=== PATIENT | male | born 1980 ===

== ENCOUNTER 2016-08-05 17:18 | Emergency (ER) | payer OTHER, BC ==
[2016-08-05 17:23] VITALS: BP 152/90; PULSE 84; RESP 18; TEMP 97.7; O2SAT 99
[2016-08-05] MEDS ORDERED: TDAP Vaccine 0.5 mL Syr IM ONE (17:35)
--- NOTE | 2016-08-05 17:37 | ED PDOC ---
HPI: Back Time Seen by Provider: 08/05/16 17:20 Chief Complaint (Nursing): Back Pain Chief Complaint (Provider): Back Pain History Per: Patient, EMS History/Exam Limitations: no limitations Onset/Duration Of Symptoms: Mins Current Symptoms Are (Timing): Still Present Additional Complaint(s): Moises Callaway is a 36 year old male that was brought to the ED via EMS after falling approximately 5 feet off of the back of his truck and onto his back. Patient denies any head injury or LOC, and states that most of his pain is located on the left side of his hip and back, as well as left chest wall. He arrived to ED in C-collar. Past Medical History Reviewed: Historical Data, Nursing Documentation, Vital Signs Vital Signs: Last Vital Signs Temp 97.7 F 08/05/16 17:21 Pulse 84 08/05/16 17:21 Resp 18 08/05/16 17:21 BP 152/90 H 08/05/16 17:21 Pulse Ox 99 08/05/16 17:21 - Family History Family History: States: Unknown Family Hx - Home Medications Home Medications: Ambulatory Orders Medication Instructions Recorded Naproxen [Naprosyn Tab] 375 mg PO Q8 PRN #21 tab 08/05/16 Non-Formulary 1 ea XX DAILY #1 ea 08/05/16 oxyCODONE/Acetaminophen [Percocet 1 ea PO Q6 PRN #10 tab 08/05/16 5/325 mg Tab] - Allergies Allergies/Adverse Reactions: Allergies Allergy/AdvReac Type Severity Reaction Status Date / Time No Known Allergies Allergy Verified 08/05/16 17:20 Review of Systems Musculoskeletal: Positive for: Back Pain (lower-left sided back pain), Leg Pain (left hip pain). Negative for: Neck Pain Physical Exam - Reviewed Nursing Documentation Reviewed: Yes Vital Signs Reviewed: Yes - Physical Exam Appears: Positive for: Non-toxic, In Acute Distress (Patient in moderate painful distress) Head Exam: Positive for: ATRAUMATIC, NORMOCEPHALIC Skin: Positive for: Normal Color, Warm Eye Exam: Positive for: Normal appearance, EOMI, PERRL Neck: Positive for: Normal (nontender) Cardiovascular/Chest: Positive for: Regular Rate, Rhythm. Negative for: Chest Non Tender (Left-lateral chest tenderness), Murmur Respiratory: Positive for: Normal Breath Sounds. Negative for: Wheezing Gastrointestinal/Abdominal: Positive for: Soft. Negative for: Tenderness Extremity: Positive for: Tenderness (left hip tenderness), Other (Abrasion along left forearm. No leg shortening.) Neurologic/Psych: Positive for: Alert, Oriented - Laboratory Results Result Diagrams: 08/05/16 18:45 08/05/16 18:45 - ECG O2 Sat by Pulse Oximetry: 99 (RA) Pulse Ox Interpretation: Normal - Progress ED Course And Treament: HIP LEFT: NO ACUTE FX PATIENT GIVEN MORPHINE 4 MG IV X 1 DOSE FOR PAIN VOMITING NOTED IN CT ZOFRAN 4 MG IV X 1 DOSE; ATIVAN 0.5 MG IV X 1 DOSE FOR ANXIETY, NS 1 LITER 500 ML PER HOUR Medical Decision Making Medical Decision Making: Impression: Left Hip, Left Lower Back, and Left Lateral Chest Pain as a result of Trauma Plan: * Type and Screen * CBC * BMP * PTT * PT * CT C-Spine w/o contrast * CT Abd/Pelvis w/ IV contrast * X-Ray Left Hip * Morphine 4 mg IV * TDAP Vaccine * Reevaluation CT Chest with IV Contrast Findings: Artifacts: Motion artifact degrades image quality. Lungs and Pleural Space: Trachea and main bronchi are patent. There is no pneumothorax. There is minimal peripheral airspace disease in the left upper lobe. There is minimal linear scarring at the lung bases. There are no effusions. Mediastinum: There is no pneumomediastinum. The esophagus is unremarkable. CT C-Spine without IV Contrast Findings: Vertebrae: There is maintenance of the cervical lordosis. There is no prevertebral soft tissue swelling. There are no fractures. There are degenerative changes. There is narrowing of the predental space. There is disc space narrowing greatest c5/c6. There is endplate irregularity and subchondral cyst formation. There are degenerative osteophytes. Facet joints align anatomically. Spinous processes align in the expected fashion. Discs/Spinal canal/neural foramina: See above. Soft tissues: See above. Scribe Attestation: Documented by Yesenia Florez, acting as a scribe for Earl Leger PA-C. Provider Scribe Attestation: All medical record entries made by the Scribe were at my direction and personally dictated by me. I have reviewed the chart and agree that the record accurately reflects my personal performance of the history, physical exam, medical decision making, and the department course for this patient. I have also personally directed, reviewed, and agree with the discharge instructions and disposition. Disposition - Clinical Impression Clinical Impression: Rib fracture - Patient ED Disposition Is Patient to be Admitted: No - Disposition Referrals: [facility] [Outside] Disposition: Routine/Home Disposition Time: 19:43 Condition: FAIR Prescriptions: Naproxen [Naprosyn Tab] 375 mg PO Q8 PRN #21 tab PRN Reason: Pain, Moderate (4-7) Non-Formulary 1 ea XX DAILY #1 ea oxyCODONE/Acetaminophen [Percocet 5/325 mg Tab] 1 ea PO Q6 PRN #10 tab PRN Reason: Pain, Severe (8-10) Instructions: Rib Fracture (ED), Hip Contusion (ED) Forms: [facility] ED School/Work Excuse Print Language: LUX[place]
[2016-08-05] MEDS ORDERED: Sodium Chloride 0.9% 50 ML IV ONE (18:00)
[2016-08-05] MEDS ORDERED: Iohexol 300 50 ML ONE (18:00)
[2016-08-05] MEDS ORDERED: Sodium Chloride 0.9% 1,000 ML IV STA (18:45)
--- NOTE | 2016-08-05 19:06 | CT ---
EXAM: CT Cervical Spine Without Intravenous Contrast CLINICAL HISTORY: 36 years old, male; Injury or trauma; Injury Fell; Initial encounter; Blunt trauma; Additional info: Trauma; Distracting injury; R/O c spine injury TECHNIQUE: Axial computed tomography images of the cervical spine without intravenous contrast. This CT exam was performed using one or more of the following dose reduction techniques: automated exposure control, adjustment of the mA and/or kV according to patient size, and/or use of iterative reconstruction technique. Coronal and sagittal reformatted images were created and reviewed. EXAM DATE/TIME: 08/05/2016 5:33 PM COMPARISON: There are no prior studies for comparison. FINDINGS: Vertebrae: There is maintenance of the cervical lordosis. There is no prevertebral soft tissue swelling. There are no fractures. There degenerative changes. There is narrowing of the predental space. There is disc space narrowing greatest C5/C6. There is endplate irregularity and subchondral cyst formation. There degenerative osteophytes.Facet joints align anatomically.Spinous processes align in the expected fashion. Discs/spinal canal/neural foramina: See above. Soft tissues: See above. Thyroid: Thyroid is unremarkable Lung apices: Lung apices are clear. IMPRESSION: Degenerative change, no fracture
[2016-08-05 19:20] LABS: BASO # 0.1 K/uL (0.0-0.2); BASO % 0.6 % (0.0-2.0); EOS # 0.1 K/uL (0.0-0.7); EOS % 1.2 % (0.0-4.0); HEMATOCRIT 41.8 % (35.0-51.0); LYMPH # 2.3 K/uL (1.0-4.3); MEAN CELL VOLUME 85.1 fl (80.0-94.0); MEAN CORPUSCULAR HEMOGLOBIN 28.7 pg (27.0-31.0); MEAN CORPUSCULAR HGB CONC 33.7 g/dL (33.0-37.0); MEAN PLATELET VOLUME 8.5 fl (7.2-11.7); MONO # 0.7 K/uL (0.0-0.8); MONO % 6.4 % (0.0-10.0); NEUT # 7.6 K/uL (1.8-7.0); NEUT % 70.8 % (50.0-75.0); NRBC % 0.1 % (0.0-0.0); RED CELL DISTRIBUTION WIDTH 13.5 % (11.5-14.5); WHITE BLOOD COUNT 10.8 K/uL (4.8-10.8)
[2016-08-05 19:21] LABS: PARTIAL THROMBOPLASTIN TIME 26.3 SECONDS (23.3-32.5)
--- NOTE | 2016-08-05 19:23 | CT ---
EXAM: CT Chest With Intravenous Contrast CLINICAL HISTORY: 36 years old, male; Injury or trauma; Injury Fall; Initial encounter; Blunt; Abdominal wall; Blunt trauma (contusions or hematomas); Additional info: Trauma CT; Fell from height; Left chest/hip pain TECHNIQUE: Axial computed tomography images of the chest with intravenous contrast. This CT exam was performed using one or more of the following dose reduction techniques: automated exposure control, adjustment of the mA and/or kV according to patient size, and/or use of iterative reconstruction technique. Coronal and sagittal reformatted images were created and reviewed. CONTRAST: 98 mL of omnipaque 300 administered intravenously. COMPARISON: There are no prior studies for comparison. FINDINGS: Artifacts: Motion artifact degrades image quality. Lungs and Pleural space: Trachea and main bronchi are patent.There is no pneumothorax. There is minimal peripheral airspace disease in the left upper lobe. There is minimal linear scarring at the lung bases. There are no effusions. Mediastinum: There is no pneumomediastinum. The esophagus is unremarkable. There is no mediastinal or hilar adenopathy. Thyroid: Thyroid is only partially imaged. Bones/joints: There are no acute displaced rib fractures. There may be a linear nondisplaced left sixth rib fracture. There is Schmorl's nodes in the thoracic spine at multiple levels. Soft tissues: unremarkable Heart and vasculature: Heart size is normal. There is no pericardial effusion. Allowing for motion, there is no aneurysm or dissection.Pulmonary vessels are unremarkable. Upper abdomen: Refer to following report for abdominal findings IMPRESSION: No acute intrathoracic injury, possible nondisplaced left sixth rib fracture Additional findings as described above. EXAM: CT Abdomen and Pelvis With Intravenous Contrast CLINICAL HISTORY: 36 years old, male; Injury or trauma; Injury Fall; Initial encounter; Blunt; Abdominal wall; Blunt trauma (contusions or hematomas); Additional info: Trauma CT; Fell from height; Left chest/hip pain TECHNIQUE: Axial computed tomography images of the abdomen and pelvis with intravenous contrast. This CT exam was performed using one or more of the following dose reduction techniques: automated exposure control, adjustment of the mA and/or kV according to patient size, and/or use of iterative reconstruction technique. Coronal and sagittal reformatted images were created and reviewed. CONTRAST: 98 mL of omnipaque 300 administered intravenously. EXAM DATE/TIME: 08/05/2016 5:31 PM COMPARISON: There are no prior studies for comparison. FINDINGS: Lower thorax: Refer to prior report for chest findings ABDOMEN: Liver: unremarkable Gallbladder and bile ducts: unremarkable Pancreas: unremarkable Spleen: Spleen is unremarkable. There is an accessory spleen in the left upper quadrant. Adrenals: unremarkable Kidneys and ureters: unremarkable Stomach and bowel: Stomach is partially distended. Rotation is normal. There is no small bowel obstruction. Terminal ileum is unremarkable. Appendix is unremarkable.There are no focal colonic abnormalities. Appendix: See stomach and bowel PELVIS: Bladder: unremarkable Reproductive: Seminal vesicles and prostate are unremarkable. ABDOMEN and PELVIS: Intraperitoneal space: There is no free air. There is no free fluid. Bones/joints: There are degenerative changes in the osseus structures. There are no pelvic fractures. There are degenerative changes in the spine. Soft tissues: There is a fat-containing umbilical hernia. Vasculature: Vascular structures are unremarkable Lymph nodes: There is no pathologic adenopathy. Other findings: There is bruising in the left flank. IMPRESSION: No acute solid visceral or bowel injury, no fracture seen; bruising in the left flank
[2016-08-05 19:27] LABS: BLOOD UREA NITROGEN 17 mg/dl (9-20); CARBON DIOXIDE 23 mmol/L (22-30); CHLORIDE 101 mmol/L (98-107); GFR AFRICAN-AMERICAN > 60; GLUCOSE,RANDOM 93 mg/dL (75-110); POTASSIUM 3.8 MMOL/L (3.6-5.0); SODIUM 134 mmol/l (132-148)
--- NOTE | 2016-08-06 13:55 | RAD ---
PROCEDURE: Left Hip X-ray Radiographs. HISTORY: LEFT HIP INJURY COMPARISON: None. FINDINGS: BONES: No acute displaced fracture or dislocation. JOINTS: Normal. SOFT TISSUES: Normal. OTHER FINDINGS: None. IMPRESSION: No acute displaced fracture or dislocation. Please note occult fractures cannot be excluded on plain radiographs. If there is a persistent clinical concern, an MRI of the hip may be performed for further evaluation.
== END 2016-08-05 22:05 | disposition home or self-care (01) ==
LOC: H.ER 17:18
DX: S22.32XA Fracture of one rib, left side, initial encounter for closed fracture (principal); W17.89XA Other fall from one level to another, initial encounter
CPT/HCPCS: 71260; 72125; 73502; 74177; 80048; 85025; 85610; 85730; 86850; 86900; 90471; 90715; 96361; 96374; 96375; 99282; J2060; J2270; J2405; J7040; Q9967